=== PATIENT | male | born 1955 | race African-American/Black ===

== ENCOUNTER 2017-03-06 23:31 | Emergency (ER) | payer MEDICAID ==
[~2017-03-06] VITALS: Ht 172.7 cm; Wt 71.0 kg
[~2017-03-06 23:31] MED LIST: METF1000
[2017-03-07] MEDS ORDERED: ONDANSETRON HCL 4MG/2ML VIAL IV STA (01:55)
[2017-03-07] MEDS ORDERED: SODIUM CHLORIDE 0.9% 1,000 ML IV ONE (01:55)
[2017-03-07 02:16] LABS: BASOPHILS % 0.6 % (0.0-2.0); HEMATOCRIT. 37.4 % (42.0-52.0); HEMOGLOBIN. 13.1 g/dL (14.0-18.0); LYMPHOCYTES % 38.9 % (20.0-50.0); MEAN CORPUSCULAR HEMOGLOBIN 28.6 pg (28.0-32.0); MEAN CORPUSCULAR VOLUME 81.7 fL (80.0-94.0); MONOCYTES % 12.3 % (2.0-8.0); NEUTROPHILS % 47.2 % (40.0-76.0); PLATELET 170 x1000/uL (130-400); RED BLOOD CELL COUNT 4.58 mill/uL (4.7-6.1); RED CELL DISTRIBUTION WIDTH 12.9 % (11.6-14.6)
[2017-03-07 02:21] LABS: CHLORIDE 103 mEq/L (98-107)
[2017-03-07 02:29] LABS: CARBON DIOXIDE 27 mEq/L (21-32)
[2017-03-07 03:16] VITALS: BP 129/69
[2017-03-07 03:44] LABS: GLUCOSE URINE 3+ (NEGATIVE); KETONES URINE NEGATIVE (NEGATIVE); LEUKOCYTE ESTERASE URINE NEGATIVE (NEGATIVE); NITRITE URINE NEGATIVE (NEGATIVE); OCCULT BLOOD URINE NEGATIVE (NEGATIVE); PH URINE 7.5 (4.5-8.0); PROTEIN URINE TRACE (NEGATIVE); SPECIFIC GRAVITY URINE 1.029 (1.005-1.030)
[2017-03-07 03:48] LABS: CLARITY URINE CLEAR (CLEAR); COLOR URINE YELLOW (YELLOW)
== END 2017-03-07 04:32 | disposition home or self-care (01) ==
LOC: ER 03-07 02:15
DX: E11.65 Type 2 diabetes mellitus with hyperglycemia (principal)
CPT/HCPCS: 36415; 71010; 80053; 81001; 82962; 83690; 85025; 93005; 96361; 96374; 99285; J2405; J7030; Z7610